=== PATIENT | female | born 1970 | race African-American/Black ===

== ENCOUNTER 2016-07-23 18:42 | Emergency (ER) | payer MEDICAID ==
[~2016-07-23] VITALS: Ht 167.6 cm; Wt 72.7 kg
[2016-07-23] MEDS ORDERED: LIDOCAINE HCL BUFFERED 1% W/EPI 1:100,000 20 ML VIAL INJ ONE (21:15)
[2016-07-23] MEDS ORDERED: PERTUSS(ACELL),DIPH,TET VAC/PF 0.5 ML VIAL IM ONE (21:15)
[2016-07-23 22:43] VITALS: BP 116/61
== END 2016-07-23 23:17 | disposition home or self-care (01) ==
LOC: EDBD 18:44 → EMS 18:44
DX: S81.812A Laceration without foreign body, left lower leg, initial encounter (principal); W18.40XA Slipping, tripping and stumbling without falling, unspecified, initial encounter; Y93.89 Activity, other specified; Y92.098 Other place in other non-institutional residence as the place of occurrence of the external cause; Y99.8 Other external cause status
CPT/HCPCS: 12002; 73590; 90471; 90715; 99284; J3490